=== PATIENT | male | born 1985 | race Caucasian/White ===

== ENCOUNTER 2018-04-08 18:57 | Emergency (ER) | payer OTHER ==
[~2018-04-08] VITALS: Ht 190.5 cm; Wt 136.1 kg
[2018-04-08] MEDS ORDERED: ACETAMINOPHEN-1 EAC1 PO (19:21)
[2018-04-08] MEDS ORDERED: IBUPROFEN 600600 M1 PO (19:21)
[2018-04-08] MEDS ORDERED: AMOXICILLIN 50500 MG PO (19:21)
[2018-04-08 19:35] VITALS: BP 122/76
== END 2018-04-08 19:35 | disposition home or self-care (01) ==
LOC: M.ERS 18:57
DX: K02.9 Dental caries, unspecified (principal)